=== PATIENT | male | born 1960 | race Caucasian/White ===

== ENCOUNTER 2017-07-28 09:58 | Day surgery (SDC) | payer OTHER ==
[~2017-07-28 09:58] MED LIST: CEFAZOLIN 1 GM INJ; GLYCOPYRROLATE 0.4 MG INJ; NEOSTIGMINE 3 MG/3 ML SYRINGE; SOD CHLORIDE 0.9% 1,000 ML IV
[2017-07-28] MEDS ORDERED: LIDOCAINE 2% (SDV) 5 ML INJ (10:59)
[2017-07-28] MEDS ORDERED: ROCURONIUM 50 MG INJ (10:59)
[2017-07-28] MEDS ORDERED: PROPOFOL 20 ML (10:59)
[2017-07-28] MEDS ORDERED: HYDROmorphONE (0.2 MG/ML) 10ML SYG IV ×3 (11:00)
[2017-07-28] MEDS ORDERED: LABETALOL HCL 20MG INJ IV (11:00)
[2017-07-28] MEDS ORDERED: EPHEDrine SULFATE 50 MG/5 ML SYG IV (11:00)
[2017-07-28] MEDS ORDERED: OXYCODONE/ACETAMINOPHEN (5/325) TAB PO ×2 (11:00)
[2017-07-28] MEDS ORDERED: MIDAZOLAM 1 MG/ML 2 ML INJ IV (11:00)
[2017-07-28] MEDS ORDERED: DIPHENHYDRAMINE 50 MG INJ IV (11:00)
[2017-07-28] MEDS ORDERED: KETOROLAC 30 MG INJ IV (11:00)
[2017-07-28] MEDS ORDERED: ALBUTEROL 0.083% (NEB) 2.5 MG/3 ML AMP HHN (11:00)
[2017-07-28] MEDS ORDERED: METOCLOPRAMIDE 10 MG INJ IV (11:00)
[2017-07-28] MEDS ORDERED: FENTAnyl 50 MCG/ML VIAL IV ×2 (11:00)
[2017-07-28] MEDS: CEFAZOLIN 2 GM/50 ML (PMX) 50 ML IVPB (11:20)
[2017-07-28] MEDS ORDERED: DEXAMETHASONE 4 MG/ML 1 ML INJ (11:49)
[2017-07-28] MEDS ORDERED: ONDANSETRON 4 MG INJ (11:50)
[2017-07-28] MEDS: POLYMYXIN/BACITRACIN 1L IRRIG (11:59)
[2017-07-28] MEDS: BUPIVACAINE 0.25% (MPF) 30 ML INJ (12:10)
[2017-07-28] MEDS ORDERED: SUGAMMADEX SODIUM 200 MG/2 ML VIAL IV (12:21)
[2017-07-28] MEDS: FENTAnyl 50 MCG/ML VIAL IV (12:34)
[2017-07-28] MEDS: ONDANSETRON 4 MG INJ IV (12:35)
[2017-07-28] MEDS: hydrALAzine 20 MG INJ IV (12:42)
[2017-07-28] MEDS: MEPERIDINE 25 MG INJ IV (12:42)
[2017-07-28] MEDS: HYDROCODONE/APAP (5/325) TAB PO (13:47)
== END 2017-07-28 15:24 | disposition home or self-care (01) ==
LOC: SDS 09:58
DX: K43.0 Incisional hernia with obstruction, without gangrene (principal); E66.9 Obesity, unspecified; Z68.28 Body mass index [BMI] 28.0-28.9, adult
CPT/HCPCS: 49655

== ENCOUNTER 2018-04-12 13:57 | Emergency (ER) | payer OTHER ==
[2018-04-12 15:59] LABS: ADD MAN DIFF? NO
[2018-04-12 16:00] LABS: WHITE BLOOD COUNT 8.8 10^3/ul (4.8-10.8)
[2018-04-12 16:00] LABS: BASOPHIL # 0.1 10^3/ul (0.0-0.1); BASOPHILS % 1.1 % (0.0-2.0); EOSINOPHILS # 0.1 10^3/ul (0.0-0.5); EOSINOPHILS % 1.4 % (0.0-7.0); HEMATOCRIT 47.7 % (42.0-52.0); HEMOGLOBIN 16.9 g/dl (14.0-18.0); LYMPHOCYTES # 1.5 10^3/ul (0.8-2.9); LYMPHOCYTES % 17.2 % (15.0-51.0); MEAN CORPUSCULAR HEMOGLOBIN 30.3 pg (29.0-33.0); MEAN CORPUSCULAR HGB CONC 35.4 g/dl (32.0-37.0); MEAN CORPUSCULAR VOLUME 85.6 fl (82.0-101.0); MEAN PLATELET VOLUME 10.8 fl (7.4-10.4); MONOCYTE # 0.8 10^3/ul (0.3-0.9); MONOCYTES % 9.4 % (0.0-11.0); NEUTROPHIL # 6.2 10^3/ul (1.6-7.5); NEUTROPHILS % 70.6 % (39.0-77.0); PLATELET COUNT 195 10^3/UL (140-415); RED BLOOD COUNT 5.57 10^6/ul (4.70-6.10); RED CELL DISTRIBUTION WIDTH 11.9 % (11.5-14.5)
[2018-04-12 16:17] LABS: INR 0.96; PROTIME 12.9 Sec (11.9-14.9)
[2018-04-12 16:18] LABS: PARTIAL THROMBOPLASTIN TIME 30.7 Sec (23.0-35.0)
[2018-04-12 16:20] LABS: ANION GAP 12 (8-16); BLOOD UREA NITROGEN 9 mg/dl (7-20); CALCIUM 9.4 mg/dl (8.4-10.2); CARBON DIOXIDE 27 mmol/L (21-31); CHLORIDE 104 mmol/L (97-110); CREATININE 0.72 mg/dl (0.61-1.24); GLUCOSE 129 mg/dl (70-220); POTASSIUM 3.8 mmol/L (3.5-5.1); SODIUM 139 mmol/L (135-144)
[2018-04-12] MEDS: APIXABAN 5 MG TABLET PO (17:17)
== END 2018-04-12 18:00 | disposition home or self-care (01) ==
LOC: E/R 13:57
DX: I82.412 Acute embolism and thrombosis of left femoral vein (principal)
CPT/HCPCS: 36415; 80048; 85025; 85610; 85730; 99283